=== PATIENT | female | born 1965 | race Two or more races ===

== ENCOUNTER 2021-04-13 11:57 | Outpatient (REF) | payer OTHER, SELFPAY ==
[2021-04-13 15:13] LABS: Binax Internal Control QC Valid; Binax Lot number: 9864; Binax Now Covid-19 Ag Negative (Negative)
== END 2021-04-13 11:58 | disposition home or self-care (01) ==
LOC: HO.LAB 11:57
PROVIDERS: Visit Provider Internal Medicine
DX: Z20.822 Contact with and (suspected) exposure to COVID-19 (principal)
CPT/HCPCS: 36415

== ENCOUNTER 2021-04-16 12:23 | Outpatient (REF) | payer OTHER, SELFPAY ==
[2021-04-16 13:42] LABS: Binax Internal Control QC Valid; Binax Now Covid-19 Ag Negative (Negative)
== END 2021-04-16 12:24 | disposition home or self-care (01) ==
LOC: HO.LAB 12:23
PROVIDERS: Visit Provider Internal Medicine
DX: Z20.822 Contact with and (suspected) exposure to COVID-19 (principal)
CPT/HCPCS: 36415; C9803